=== PATIENT | male | born 1990 | race Caucasian/White ===

== ENCOUNTER 2019-01-22 21:54 | Emergency (ER) | payer OTHER ==
[2019-01-22 22:02] VITALS: BP 141/72
--- NOTE | 2019-01-22 23:18 | ED Physician Documentation ---
History of Present Illness - Stated complaint Stated Complaint: STITCH CAME OUT/MALE - Chief complaint Chief Complaint: General - History obtained from History obtained from: Patient - History of Present Illness Timing: Today (He had a cyst removed from the right hemiscrotum earlier today. At home tonight it started bleeding and he thinks a stitch might of come out.) Review of Systems Constitutional: reports: Reviewed and negative Cardiac: reports: Reviewed and negative Respiratory: reports: Reviewed and negative PD PAST MEDICAL HISTORY - Allergies Allergies/Adverse Reactions: Allergies Allergy/AdvReac Type Severity Reaction Status Date / Time No Known Drug Allergies Allergy Verified 01/22/19 22:02 - Social History Does the pt smoke?: No Smoking Status: Never smoker PD ED PE NORMAL - Vitals Vital signs reviewed: Yes - General General: Alert and oriented X 3, No acute distress - Male Male : Other (There is a suture line in the right hemiscrotum, it does look like there is a suture that is out and there is active bleeding from the inferior part of the wound.) - Neuro Neuro: Alert and oriented X 3, Normal speech Results - Vitals Vitals: Vital Signs - 24 hr 01/22/19 21:58 Temperature 35.9 C L Heart Rate 58 L Respiratory 16 Rate Blood Pressure 141/72 H O2 Saturation 97 Oxygen O2 Source Room air Procedures - Laceration (location) R scrotum Length in cm: 1 Wound type: Linear Anesthesia: Lidocaine 1% with epi Wound Preparation: Hibiclens Skin layer closure: Interrupted, Other (vicryl 5-0 x 2) Other: Tetanus UTD Complexity: Simple Departure - Departure Disposition: 01 Home, Self Care Clinical Impression: Laceration of scrotum Qualifiers: Encounter type: initial encounter Qualified Code(s): S31.31XA - Laceration without foreign body of scrotum and testes, initial encounter Condition: Good Record reviewed to determine appropriate education?: Yes Instructions: ED Laceration All Comments: Come back for any signs of infection which would include: Redness, swelling, drainage, increased pain, or fevers. Call the surgeon on Friday for follow-up.
== END 2019-01-22 23:30 | disposition home or self-care (01) ==
LOC: ED 21:54
DX: S31.30XA Unspecified open wound of scrotum and testes, initial encounter (principal); T81.89XA Other complications of procedures, not elsewhere classified, initial encounter; Y83.8 Other surgical procedures as the cause of abnormal reaction of the patient, or of later complication, without mention of misadventure at the time of the procedure
CPT/HCPCS: 12001; 99282